=== PATIENT | female | born 1990 | race Caucasian/White ===

== ENCOUNTER 2018-01-18 09:00 | Inpatient (IN) | payer OTHER ==
[~2018-01-18] VITALS: Ht 162.6 cm; Wt 74.8 kg
[~2018-01-18 09:00] MED LIST: IBUP-2070 PO; IRON18TA PO; PERCT PO
[2018-01-18] MEDS ORDERED: RINGERS SOLUTION,LACTATED 1,000 ML IV PRN (09:04)
[2018-01-18] MEDS ORDERED: OXYTOCIN 30 UNITS/LACT RINGERS 500 ML IV ONE (09:04)
[2018-01-18] MEDS ORDERED: METHYLERGONOVINE MALEATE 0.2 MG/ML VIAL IM PRN (09:15)
[2018-01-18] MEDS ORDERED: LIDOCAINE/PF 1% 30 ML VIAL INJ PRN (09:15)
[2018-01-18] MEDS ORDERED: METOCLOPRAMIDE HCL 5 MG/ML 2 ML VIAL IVP PRN (09:15)
[2018-01-18] MEDS ORDERED: CITRIC ACID/SODIUM CITRATE 30 ML SOLUTION UDCUP PO PRN (09:15)
[2018-01-18] MEDS ORDERED: FentaNYL CITRATE-PF 100 MCG/2 ML VIAL IVP PRN (09:15)
[2018-01-18 09:20] VITALS: BP 128/67
[2018-01-18] MEDS ORDERED: MISOPROSTOL 25 MCG TABLET VG ONE (09:30)
[2018-01-18] MEDS ORDERED: PREN1TAB80 PO (09:37)
[2018-01-18 09:51] LABS: BASOPHILS % (AUTO) 0.5 % (0.0-2.0); EOSINOPHILS % (AUTO) 2.4 % (1.0-6.0); HEMATOCRIT 33.8 % (36-46); HEMOGLOBIN 11.6 g/dL (12.0-16.0); LYMPHOCYTES # (AUTO) 1.3 K/uL (1.0-4.8); LYMPHOCYTES % (AUTO) 19.3 % (22.0-44.0); MEAN CORPUSCULAR HEMOGLOBIN 30.2 pg (26.0-34.0); MEAN CORPUSCULAR HGB CONC 34.3 G/dL (31.0-37.0); MEAN CORPUSCULAR VOLUME 88 fL (80-100); MONOCYTES # (AUTO) 0.5 K/uL (0.1-1.0); MONOCYTES % (AUTO) 7.5 % (2.0-9.0); NEUTROPHILS # (AUTO) 4.8 K/uL (1.8-7.7); NEUTROPHILS % (AUTO) 70.3 % (40.0-70.0); PLATELET COUNT (AUTO) 263 K/uL (150-450); RED BLOOD CELL COUNT(AUTO) 3.85 MIL/uL (4.00-5.20); RED CELL DISTRIBUTION WIDTH 13.7 % (11.5-14.5)
[2018-01-18] MEDS: RINGERS SOLUTION,LACTATED 1,000 ML IV SCH ×2 (09:56→13:41)
[2018-01-18] MEDS ORDERED: OXYTOCIN 30 UNITS/LACT RINGERS 500 ML IV PRN (14:14)
[2018-01-18] MEDS ORDERED: ROPIVACAINE HCL/PF 0.2% 100 ML ED ONE (14:14)
[2018-01-18] MEDS ORDERED: ROPIVACAINE HCL/PF 0.2% 100 ML ED PRN (14:44)
[2018-01-18] MEDS ORDERED: DiphenhydrAMINE HCL 50 MG/ML VIAL IVP PRN (14:45)
[2018-01-18] MEDS ORDERED: ONDANSETRON HCL 4 MG/2 ML VIAL IVP PRN (14:45)
[2018-01-18] MEDS ORDERED: FentaNYL CITRATE-PF 100 MCG/2 ML VIAL ONE (15:34)
[2018-01-18] MEDS ORDERED: CeFAZolin 2 GM/DEXTROSE 50 ML IV ONE (16:30)
[2018-01-18] MEDS ORDERED: ACETAMINOPHEN/CODEINE 300-30 MG TABLET PO PRN ×2 (16:45)
[2018-01-18] MEDS: GLYCERIN/WITCH HAZEL LEAF 40 PADS JAR TP PRN ×2 (17:38→21:02)
[2018-01-18] MEDS: IBUPROFEN 800 MG TABLET PO SCH (17:38)
[2018-01-18] MEDS: LANOLIN 7 GM OINTMENT TP PRN ×2 (17:38→21:02)
[2018-01-18] MEDS: BENZOCAINE 20%/MENTHOL 56 GM SPRAY CANISTER TP PRN ×2 (17:38→21:02)
[2018-01-18] MEDS ORDERED: OXYGEN THERAPY IH SCH (20:00)
[2018-01-18] MEDS: MAGNESIUM HYDROXIDE SUSPENSION 30 ML UDCUP PO SCH (21:01)
[2018-01-19] MEDS: IBUPROFEN 800 MG TABLET PO SCH ×3 (00:10→14:04)
[2018-01-19] MEDS: MAGNESIUM HYDROXIDE SUSPENSION 30 ML UDCUP PO SCH (08:10)
[2018-01-19] MEDS ORDERED: IBUP-2071 PO (08:38)
[2018-01-19] MEDS ORDERED: DSS100 PO (08:39)
[2018-01-19] MEDS ORDERED: FERR-89 PO (08:44)
== END 2018-01-19 14:10 | disposition home or self-care (01) | DRG 807 ==
LOC: 4S 09:00 → OBSVTOIN 09:00
PROVIDERS: ADMIT Obstetrics & Gynecology; ATTEND Obstetrics & Gynecology
PROC: 10E0XZZ Delivery of Products of Conception, External Approach (ICD-10-PCS; principal; 2018-01-18)
PROC: 0KQM0ZZ Repair Perineum Muscle, Open Approach (ICD-10-PCS; 2018-01-18)
PROC: 10907ZC Drainage of Amniotic Fluid, Therapeutic from Products of Conception, Via Natural or Artificial Opening (ICD-10-PCS; 2018-01-18)
PROC: 3E0R3BZ Introduction of Anesthetic Agent into Spinal Canal, Percutaneous Approach (ICD-10-PCS; 2018-01-18)
PROC: 00HU33Z Insertion of Infusion Device into Spinal Canal, Percutaneous Approach (ICD-10-PCS; 2018-01-18)
DX: O69.81X0 Labor and delivery complicated by cord around neck, without compression, not applicable or unspecified (principal); Z37.0 Single live birth; Z3A.39 39 weeks gestation of pregnancy; O70.1 Second degree perineal laceration during delivery
CPT/HCPCS: 86850; 86900; 86901; J0690; J2590; J2795; J3010; J7120